=== PATIENT | female | born 1975 | race Two or more races ===

== ENCOUNTER 2016-09-30 12:31 | Emergency (ER) | payer MEDICAID ==
[~2016-09-30] VITALS: Ht 172.7 cm; Wt 81.2 kg
[2016-09-30 12:37] VITALS: BP 165/89
[2016-09-30] MEDS ORDERED: MECLIZINE HCL 12.5 MG TABLET PO ONE (13:00)
[2016-09-30] MEDS ORDERED: DEXAMETHASONE 1 MG TABLET PO ONE (13:00)
[2016-09-30] MEDS ORDERED: MECLIZINE HCL 25 MG TABLET ONE (13:12)
[2016-09-30] MEDS ORDERED: DEXAMETHASONE 4 MG TABLET ONE (13:13)
[2016-09-30] MEDS ORDERED: DEXAMETHASONE 1 MG TABLET ONE (13:13)
== END 2016-09-30 13:21 | disposition home or self-care (01) ==
LOC: ER 12:33
DX: H81.10 Benign paroxysmal vertigo, unspecified ear (principal); T50.905A Adverse effect of unspecified drugs, medicaments and biological substances, initial encounter; G89.29 Other chronic pain; M25.512 Pain in left shoulder; Y92.9 Unspecified place or not applicable
CPT/HCPCS: 99283; A4606; J8540 ×2; J8597; Z7610

== ENCOUNTER 2017-11-05 13:45 | Emergency (ER) | payer MEDICAID ==
[~2017-11-05] VITALS: Ht 165.1 cm; Wt 72.6 kg
[2017-11-05] MEDS ORDERED: MECLIZINE HCL 12.5 MG TABLET PO ONE (14:30)
[2017-11-05] MEDS ORDERED: ONDANSETRON HCL/PF 4 MG/2 ML VIAL IVP ONE (14:30)
[2017-11-05] MEDS ORDERED: DIAZEPAM 10 MG TABLET PO ONE (14:30)
[2017-11-05] MEDS ORDERED: IV NS 0.9% 1,000 ML BAG IV ONE (14:30)
[2017-11-05] MEDS ORDERED: ONDANSETRON HCL/PF 4 MG/2 ML VIAL ONE (14:41)
[2017-11-05] MEDS ORDERED: MECLIZINE HCL 25 MG TABLET ONE (14:42)
[2017-11-05] MEDS ORDERED: DIAZEPAM 5 MG TABLET ONE (14:42)
[2017-11-05 14:51] LABS: APPEARANCE,URINE Slightly Cloudy (CLEAR); BILIRUBIN,URINE Negative (NEGATIVE); BLOOD, URINE Trace-intact Ery/uL (NEGATIVE); COLOR,URINE Yellow (YELLOW); KETONES,URINE Negative (NEGATIVE); LEUKOCYTE ESTERASE ,URINE Moderate (NEGATIVE); NITRITE, URINE Negative (NEGATIVE); PROTEIN,URINE Negative (NEGATIVE); UGLUCOSE Negative (NEGATIVE); UROBILINOGEN,URINE 0.2 EU/dL (0.2)
[2017-11-05 14:53] LABS: BASOPHILS % (AUTO) 0.3 % (0.0-2.0); HEMATOCRIT 35 % (33-45); HEMOGLOBIN 12.1 g/dL (11.5-14.8); LYMPHOCYTES # (AUTO) 1.8 /CMM (0.8-4.8); LYMPHOCYTES % (AUTO) 19.4 % (20.0-44.0); MEAN CORPUSCULAR HGB CONC 35 g/dl (31.0-36.0); MEAN CORPUSCULAR VOLUME 81 fL (82-100); MONOCYTES # (AUTO) 0.9 /CMM (0.1-1.30); MONOCYTES % (AUTO) 9.6 % (2.0-12.0); NEUTROPHILS # (AUTO) 6.6 /CMM (1.8-8.9); NEUTROPHILS % (AUTO) 69.7 % (43.0-81.0); PLATELET COUNT (AUTO) 257 /CMM (150-450); RDW COEFFICIENT OF VARIATION 12.8 (11.5-15.0); RED BLOOD CELL COUNT(AUTO) 4.27 MIL/uL (4.0-5.2); WHITE BLOOD COUNT (AUTO) 9.4 K/uL (4.3-11.0)
[2017-11-05 14:58] LABS: BACTERIA,URINE Few /HPF (None Seen); WBC,URINE 80-100 /HPF (0-3)
[2017-11-05 14:59] LABS: SQUAMOUS EPITHELIAL CELL,UR Moderate /HPF (None Seen)
[2017-11-05 15:03] LABS: CALCIUM, SERUM 8.6 mg/dL (8.5-10.1); CARBON DIOXIDE 27 mmol/L (21-32); CHLORIDE 107 mmol/L (98-107); CREATININE 0.7 mg/dL (0.6-1.3); GLUCOSE 151 mg/dL (74-106); POTASSIUM 3.6 mmol/L (3.5-5.1); SODIUM SERUM 138 mmol/L (136-145); UREA NITROGEN, BLOOD 11 mg/dL (7-18)
[2017-11-05 15:09] LABS: ALANINE AMINOTRANSFERASE 19 U/L (12-78); ALBUMIN 3.5 g/dL (3.4-5.0); ALKALINE PHOSPHATASE 59 U/L (46-116); ASPARTATE AMINOTRANSFERASE 13 U/L (15-37); BILIRUBIN,DIRECT 0.1 mg/dL (0.0-0.2); BILIRUBIN,TOTAL 0.6 mg/dL (0.2-1.0); TOTAL PROTEIN, SERUM 8.2 g/dL (6.4-8.2)
[2017-11-05 15:11] LABS: TROPONIN I < 0.017 ng/mL (0.00-0.056)
--- NOTE | 2017-11-05 15:11 | NUR ---
C/O DIZZINESS ABD PAIN AND VAGINAL DISCAHRGE X3 DAYS, NAD NOTED, VSS, RESP EVEN AND UNLABORED, PT WAS PUT ON MONITOR AND HOSPITAL GOWN, WAITING FOR MD GIPSON.
[2017-11-05] MEDS ORDERED: METRONIDAZOLE 500 MG TABLET ONE (15:54)
[2017-11-05] MEDS ORDERED: CEFTRIAXONE 1 G VIAL ONE (15:54)
[2017-11-05] MEDS ORDERED: AZITHROMYCIN 250 MG TABLET ONE (15:54)
[2017-11-05] MEDS ORDERED: LIDOCAINE /MPF 1% VIAL 5 ML VIAL ONE (15:54)
[2017-11-05] MEDS ORDERED: AZITHROMYCIN 250 MG TABLET PO ONE (16:00)
[2017-11-05] MEDS ORDERED: METRONIDAZOLE 500 MG TABLET PO ONE (16:00)
[2017-11-05] MEDS ORDERED: CEFTRIAXONE 1 G VIAL IM ONE (16:00)
--- NOTE | 2017-11-05 16:42 | NUR ---
Patient discharged to home in stable condition. Written and verbal after care instructions given. Patient verbalizes understanding of instruction.
--- NOTE | 2017-11-05 16:42 | NUR ---
IV removed. Catheter intact and site benign. Pressure and 4x4 applied to site. No bleeding noted.
[2017-11-05 16:43] VITALS: BP 147/89
== END 2017-11-05 16:44 | disposition home or self-care (01) ==
LOC: ER 13:46
DX: R42 Dizziness and giddiness (principal); N39.0 Urinary tract infection, site not specified; N89.8 Other specified noninflammatory disorders of vagina; G89.29 Other chronic pain
CPT/HCPCS: 36415; 70450-TC; 71045-TC; 76856-TC; 80048-TC; 80076-TC; 81000-TC; 84484-TC; 84703-TC; 85025-TC; 85730-TC; 87070-TC; 87081-TC; 87086-TC; 87110-TC; 87210-TC; 87491; 87591; A4606; A6402; J0696; J2405; J3490; J7030; J8597; Z7610

== ENCOUNTER 2018-01-25 10:17 | Emergency (ER) | payer MEDICAID ==
[~2018-01-25] VITALS: Ht 162.6 cm; Wt 71.7 kg
--- NOTE | 2018-01-25 10:30 | NUR ---
BUE PAIN WORST TO R HAND, L KNEE PAIN X 5 DAYS, NAD NOTED, VSS, RESP EVEN AND UNLABORED, PT WAS PUT ON MONITOR. WAITING FOR MD GIPSON.
[2018-01-25] MEDS ORDERED: KETOROLAC TROMETHAMINE INJ 30 MG/ML VIAL ONE (11:23)
[2018-01-25] MEDS ORDERED: KETOROLAC TROMETHAMINE INJ 60 MG/2 ML VIAL IM ONE (11:30)
[2018-01-25 11:31] LABS: BASOPHILS # (AUTO) 0.1 /CMM (0.0-0.2); BASOPHILS % (AUTO) 0.7 % (0.0-2.0); EOSINOPHILS % (AUTO) 2.9 % (0.0-6.0); HEMATOCRIT 35 % (33-45); HEMOGLOBIN 11.6 g/dL (11.5-14.8); LYMPHOCYTES % (AUTO) 24.1 % (20.0-44.0); MEAN CORPUSCULAR HEMOGLOBIN 27 PG (26.0-33.0); MEAN CORPUSCULAR HGB CONC 34 g/dl (31.0-36.0); MEAN CORPUSCULAR VOLUME 82 fL (82-100); MONOCYTES # (AUTO) 0.9 /CMM (0.1-1.30); MONOCYTES % (AUTO) 10.5 % (2.0-12.0); NEUTROPHILS # (AUTO) 5.2 /CMM (1.8-8.9); NEUTROPHILS % (AUTO) 61.8 % (43.0-81.0); PLATELET COUNT (AUTO) 259 /CMM (150-450); RDW COEFFICIENT OF VARIATION 12.7 (11.5-15.0); RED BLOOD CELL COUNT(AUTO) 4.27 MIL/uL (4.0-5.2); WHITE BLOOD COUNT (AUTO) 8.4 K/uL (4.3-11.0)
[2018-01-25 11:41] LABS: CALCIUM, SERUM 8.4 mg/dL (8.5-10.1); CREATININE 0.7 mg/dL (0.6-1.3); POTASSIUM 3.6 mmol/L (3.5-5.1)
[2018-01-25 11:46] LABS: ALBUMIN 3.4 g/dL (3.4-5.0); BILIRUBIN,TOTAL 0.5 mg/dL (0.2-1.0); TOTAL PROTEIN, SERUM 7.9 g/dL (6.4-8.2)
[2018-01-25 11:58] LABS: C-REACTIVE PROTEIN 2.7 mg/dL (0.0-0.9)
[2018-01-25 12:11] LABS: APPEARANCE,URINE Clear (CLEAR); BILIRUBIN,URINE Negative (NEGATIVE); BLOOD, URINE Negative Ery/uL (NEGATIVE); COLOR,URINE Yellow (YELLOW); KETONES,URINE Trace (NEGATIVE); LEUKOCYTE ESTERASE ,URINE Small (NEGATIVE); NITRITE, URINE Negative (NEGATIVE); PROTEIN,URINE Negative (NEGATIVE); UGLUCOSE Negative (NEGATIVE); UROBILINOGEN,URINE 0.2 EU/dL (0.2)
[2018-01-25 12:16] LABS: RBC,URINE 0-3 /HPF (0-2)
[2018-01-25 12:17] LABS: BACTERIA,URINE Few /HPF (None Seen); SQUAMOUS EPITHELIAL CELL,UR Moderate /HPF (None Seen)
[2018-01-25 12:44] VITALS: BP 128/65
--- NOTE | 2018-01-25 12:46 | NUR ---
Patient discharged to home in stable condition. Written and verbal after care instructions given. Patient verbalizes understanding of instruction.
== END 2018-01-25 12:49 | disposition home or self-care (01) ==
LOC: ER 10:20
DX: M25.562 Pain in left knee (principal); M79.641 Pain in right hand; G89.29 Other chronic pain
CPT/HCPCS: 36415; 73130-TC; 73564-TC; 80053-TC; 81000-TC; 84703-TC; 85025-TC; 85652-TC; 86140-TC; 86431-TC; A4606; J1885; Z7610

== ENCOUNTER 2018-06-16 12:43 | Emergency (ER) | payer MEDICAID ==
[~2018-06-16] VITALS: Ht 162.6 cm; Wt 65.8 kg
--- NOTE | 2018-06-16 12:45 | NUR ---
BIB SELF W C/O BREAST AND VAGINAL DISCHARGE X 6 MONTHS. TO ER BED 16, CHANGED TO [facility], AWAITING MD GIPSON
--- NOTE | 2018-06-16 13:30 | NUR ---
KARLO DOUGHERTYT AT BEDSIDE
--- NOTE | 2018-06-16 13:43 | NUR ---
CERVICAL WET MOUNT SPECIMEN SUBMITTED TO LAB
[2018-06-16 13:47] LABS: APPEARANCE,URINE Clear (CLEAR); BILIRUBIN,URINE Negative (NEGATIVE); BLOOD, URINE Trace-intact Ery/uL (NEGATIVE); COLOR,URINE Yellow (YELLOW); KETONES,URINE Negative (NEGATIVE); LEUKOCYTE ESTERASE ,URINE Trace (NEGATIVE); NITRITE, URINE Negative (NEGATIVE); PROTEIN,URINE Negative (NEGATIVE); UGLUCOSE Negative (NEGATIVE); UROBILINOGEN,URINE 0.2 EU/dL (0.2)
[2018-06-16 13:58] LABS: BACTERIA,URINE Few /HPF (None Seen); SQUAMOUS EPITHELIAL CELL,UR Few /HPF (None Seen)
[2018-06-16] MEDS ORDERED: FLUCONAZOLE (100 MG) 100 MG TABLET PO ONE (15:00)
[2018-06-16] MEDS ORDERED: FLUCONAZOLE (100 MG) 100 MG TABLET ONE (15:07)
--- NOTE | 2018-06-16 15:34 | NUR ---
Patient discharged to home in stable condition. Written and verbal after care instructions given. Patient verbalizes understanding of instruction.
[2018-06-16 15:40] VITALS: BP 138/98
== END 2018-06-16 15:41 | disposition home or self-care (01) ==
LOC: ER 12:46
DX: N89.8 Other specified noninflammatory disorders of vagina (principal); N64.3 Galactorrhea not associated with childbirth; I10 Essential (primary) hypertension; M25.512 Pain in left shoulder; G89.29 Other chronic pain; Z85.3 Personal history of malignant neoplasm of breast
CPT/HCPCS: 81000-TC; 84703-TC; 87210-TC

== ENCOUNTER 2019-01-25 09:56 | Emergency (ER) | payer MEDICAID ==
[~2019-01-25] VITALS: Ht 165.1 cm; Wt 72.6 kg
--- NOTE | 2019-01-25 10:00 | NUR ---
Able to move wrist +ROM No obvious deformity Denies trauma/injury
[2019-01-25 10:10] VITALS: BP 152/90
== END 2019-01-25 11:50 | disposition home or self-care (01) ==
LOC: ER 09:59
DX: M25.532 Pain in left wrist (principal); I10 Essential (primary) hypertension; G89.29 Other chronic pain; M19.90 Unspecified osteoarthritis, unspecified site
CPT/HCPCS: 73110

== ENCOUNTER 2019-02-25 19:34 | Emergency (ER) | payer MEDICAID ==
[~2019-02-25] VITALS: Ht 165.1 cm; Wt 68.0 kg
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
--- NOTE | 2019-02-25 20:50 | NUR ---
PA AT THE BED SIDE
[2019-02-25] MEDS ORDERED: KETOROLAC TROMETHAMINE INJ 60 MG/2 ML VIAL IM ONE (21:00)
[2019-02-25] MEDS ORDERED: KETOROLAC TROMETHAMINE INJ 30 MG/ML VIAL ONE (21:11)
--- NOTE | 2019-02-25 22:50 | NUR ---
PT WAS PROVIDED WITH L SHOULDER IMMOBILIZER. Patient discharged to home in stable condition. Rx and Written and verbal after care instructions given. Patient verbalizes understanding of instruction.
[2019-02-25 23:55] VITALS: BP 147/87
== END 2019-02-25 23:00 | disposition home or self-care (01) ==
LOC: ER 19:37
DX: M25.512 Pain in left shoulder (principal); G89.29 Other chronic pain; M54.9 Dorsalgia, unspecified; I10 Essential (primary) hypertension; M19.90 Unspecified osteoarthritis, unspecified site; Y08.89XA Assault by other specified means, initial encounter; Y93.89 Activity, other specified; Y92.89 Other specified places as the place of occurrence of the external cause; Y99.8 Other external cause status
CPT/HCPCS: 73030; 96372; 99283; J1885

== ENCOUNTER 2019-03-18 09:15 | Emergency (ER) | payer MEDICAID ==
[~2019-03-18] VITALS: Ht 165.1 cm; Wt 72.6 kg
--- NOTE | 2019-03-18 09:40 | NUR ---
SORETHROAT, DIFFICULTY SWALLOWING X YESTERDAY, FEVER LAST NIGHT TOOK TYLENOL AT 6AM. ON ROOM AIR, BREATHING EVENLY AND UNLABORED. CONNECTED TO THE MONITOR AND PULSE OX. KEPT COMFORTABLE, WILL CONITNUE TO MONITOR ACCORDINGLY.
[2019-03-18] MEDS ORDERED: ACETAMINOPHEN ES 500 MG TABLET ONE (09:48)
[2019-03-18] MEDS ORDERED: DEXAMETHASONE SOD PHOSPHATE 10 MG/ML VIAL ONE (09:48)
[2019-03-18 09:56] VITALS: BP 155/96
--- NOTE | 2019-03-18 09:57 | NUR ---
Patient discharged to home in stable condition. Written and verbal after care instructions given. Patient verbalizes understanding of instruction.
[2019-03-18] MEDS ORDERED: ACETAMINOPHEN ES 500 MG TABLET PO ONE (10:00)
[2019-03-18] MEDS ORDERED: DEXAMETHASONE SOD PHOSPHATE 10 MG/ML VIAL IM ONE (10:00)
== END 2019-03-18 09:56 | disposition home or self-care (01) ==
LOC: ER 09:18
DX: J02.0 Streptococcal pharyngitis (principal); R59.0 Localized enlarged lymph nodes; I10 Essential (primary) hypertension; M25.512 Pain in left shoulder; G89.29 Other chronic pain
CPT/HCPCS: 96372; 99283; J1100

== ENCOUNTER 2020-01-27 18:42 | Emergency (ER) | payer MEDICAID ==
[~2020-01-27] VITALS: Ht 154.9 cm; Wt 72.6 kg
[2020-01-27 19:10] LABS: BILIRUBIN,URINE Negative (NEGATIVE); BLOOD, URINE Large Ery/uL (NEGATIVE); COLOR,URINE Yellow (YELLOW); KETONES,URINE Negative (NEGATIVE); LEUKOCYTE ESTERASE ,URINE Negative (NEGATIVE); NITRITE, URINE Negative (NEGATIVE); PH,URINE 5.5 (5.0-8.0); PROTEIN,URINE Negative (NEGATIVE); UGLUCOSE Negative (NEGATIVE); UROBILINOGEN,URINE 0.2 EU/dL (0.2)
[2020-01-27 19:19] LABS: APPEARANCE,URINE HAZY (CLEAR)
[2020-01-27 19:20] LABS: BACTERIA,URINE Few /HPF (None Seen); RBC,URINE 21-50 /HPF (0-2); SQUAMOUS EPITHELIAL CELL,UR Few /HPF (None Seen); WBC,URINE 0-2 /HPF (0-3)
[2020-01-27] MEDS ORDERED: IV NS 0.9% 1,000 ML BAG IV ONE (19:30)
[2020-01-27 19:40] LABS: BASOPHILS % (AUTO) 0.6 % (0.0-2.0); HEMATOCRIT 32 % (33-45); HEMOGLOBIN 10.6 g/dL (11.5-14.8); LYMPHOCYTES # (AUTO) 2.4 /CMM (0.8-4.8); LYMPHOCYTES % (AUTO) 32.4 % (20.0-44.0); MEAN CORPUSCULAR HGB CONC 34 g/dl (31.0-36.0); MEAN CORPUSCULAR VOLUME 83 fL (82-100); MONOCYTES # (AUTO) 0.7 /CMM (0.1-1.30); MONOCYTES % (AUTO) 8.9 % (2.0-12.0); NEUTROPHILS # (AUTO) 4.1 /CMM (1.8-8.9); NEUTROPHILS % (AUTO) 55.1 % (43.0-81.0); PLATELET COUNT (AUTO) 242 /CMM (150-450); RED BLOOD CELL COUNT(AUTO) 3.81 MIL/uL (4.0-5.2); WHITE BLOOD COUNT (AUTO) 7.4 K/uL (4.3-11.0)
--- NOTE | 2020-01-27 19:43 | NUR ---
VAGINAL BLEEDING X 10 DAYS. PT AAOX4, VSS. RR EVEN & UNLBORED. DENIES CP, SOB, N/V AT THIS TIME. PT SEEN & EVAL'D BY KARLO ARITA. WILL CONT TO MONITOR.
[2020-01-27 21:00] LABS: BASOPHILS % (AUTO) 0.5 % (0.0-2.0); EOSINOPHILS % (AUTO) 2.6 % (0.0-6.0); HEMATOCRIT 29 % (33-45); HEMOGLOBIN 9.6 g/dL (11.5-14.8); LYMPHOCYTES % (AUTO) 29.9 % (20.0-44.0); MEAN CORPUSCULAR HGB CONC 34 g/dl (31.0-36.0); MEAN CORPUSCULAR VOLUME 83 fL (82-100); MONOCYTES # (AUTO) 0.5 /CMM (0.1-1.30); MONOCYTES % (AUTO) 7.6 % (2.0-12.0); NEUTROPHILS % (AUTO) 59.4 % (43.0-81.0); PLATELET COUNT (AUTO) 220 /CMM (150-450); RED BLOOD CELL COUNT(AUTO) 3.43 MIL/uL (4.0-5.2); WHITE BLOOD COUNT (AUTO) 6.7 K/uL (4.3-11.0)
[2020-01-27 21:23] VITALS: BP 146/86
--- NOTE | 2020-01-27 21:23 | NUR ---
Patient discharged to home in stable condition. Written and verbal after care instructions given. Patient verbalizes understanding of instruction. IV removed. Catheter intact and site benign. Pressure and 4x4 applied to site. No bleeding noted.
== END 2020-01-27 21:24 | disposition home or self-care (01) ==
LOC: ER 18:42
DX: N92.0 Excessive and frequent menstruation with regular cycle (principal); R42 Dizziness and giddiness; I10 Essential (primary) hypertension; M19.90 Unspecified osteoarthritis, unspecified site
CPT/HCPCS: 36415; 76856; 81001; 84702; 84703; 85025 ×2; 85730; 86850; 96360; 99284; A6403; J7030; 81000-TC

== ENCOUNTER 2020-01-31 20:19 | Emergency (ER) | payer MEDICAID ==
[~2020-01-31] VITALS: Ht 160 cm; Wt 72.6 kg
--- NOTE | 2020-01-31 20:30 | NUR ---
PT CAME TO THE ED C/O LOWER ABD PAIN + NAUSEA AND VAGINAL BLEEDING X 2 WEEKS. PT AAOX4, VSS, RESPIRATIONS EVEN AND UNLABORED ON RA W/ NAD NOTED. PT CONNECTED TO THE MONITOR AND POX.
--- NOTE | 2020-01-31 20:35 | NUR ---
KARLO PATE AT BEDSIDE
[2020-01-31] MEDS ORDERED: ONDANSETRON HCL/PF 4 MG/2 ML VIAL ONE (20:49)
[2020-01-31] MEDS ORDERED: MORPHINE SULFATE INJ 4 MG/ML DISP.SYRIN ONE (20:49)
[2020-01-31 20:54] LABS: BASOPHILS % (AUTO) 0.5 % (0.0-2.0); HEMATOCRIT 27 % (33-45); HEMOGLOBIN 9.1 g/dL (11.5-14.8); LYMPHOCYTES # (AUTO) 1.9 /CMM (0.8-4.8); LYMPHOCYTES % (AUTO) 21.6 % (20.0-44.0); MEAN CORPUSCULAR HGB CONC 34 g/dl (31.0-36.0); MEAN CORPUSCULAR VOLUME 84 fL (82-100); MONOCYTES # (AUTO) 0.6 /CMM (0.1-1.30); MONOCYTES % (AUTO) 6.9 % (2.0-12.0); NEUTROPHILS # (AUTO) 6.1 /CMM (1.8-8.9); PLATELET COUNT (AUTO) 250 /CMM (150-450); RED BLOOD CELL COUNT(AUTO) 3.21 MIL/uL (4.0-5.2); WHITE BLOOD COUNT (AUTO) 8.8 K/uL (4.3-11.0)
[2020-01-31] MEDS ORDERED: ONDANSETRON HCL/PF 4 MG/2 ML VIAL IVP ONE (21:00)
[2020-01-31] MEDS ORDERED: IV NS 0.9% 1,000 ML BAG IV ONE (21:00)
[2020-01-31] MEDS ORDERED: MORPHINE SULFATE INJ 4 MG/ML DISP.SYRIN IV ONE (21:00)
[2020-01-31 21:04] LABS: CALCIUM, SERUM 8.4 mg/dL (8.5-10.1); CREATININE 0.9 mg/dL (0.6-1.3); POTASSIUM 3.9 mmol/L (3.5-5.1)
--- NOTE | 2020-01-31 22:41 | NUR ---
Patient discharged to home in stable condition. Written and verbal after care instructions given. Patient verbalizes understanding of instruction.IV removed. Catheter intact and site benign. Pressure and 4x4 applied to site. No bleeding noted.
[2020-01-31 22:42] VITALS: BP 138/78
== END 2020-01-31 22:42 | disposition home or self-care (01) ==
LOC: ER 20:23
DX: N93.8 Other specified abnormal uterine and vaginal bleeding (principal); I10 Essential (primary) hypertension; M19.90 Unspecified osteoarthritis, unspecified site
CPT/HCPCS: 36415; 80048; 85025; 85730; 96361; 96374; 96375; 99284; J2270; J2405; J7030

== ENCOUNTER 2020-02-03 10:24 | Emergency (ER) | payer MEDICAID ==
[~2020-02-03] VITALS: Ht 160 cm; Wt 77.1 kg
[2020-02-03 10:29] VITALS: BP 152/98
--- NOTE | 2020-02-03 10:40 | NUR ---
RIGHT HAND PAIN AND SWELLING X 3 DAYS,NO TRAUMA, IBUPROFEN 600 MG. TAKEN 30 MINUTES MONITORING SPECIALIST. PATIENT A/OX4, BREATHING EVEN AND UNLABORED, NO SOB NOTED. NEEDS ATTENDED. KEPT COMFORTABLE.
--- NOTE | 2020-02-03 11:48 | NUR ---
Patient discharged to home in stable condition. Written and verbal after care instructions given. Patient verbalizes understanding of instruction.
== END 2020-02-03 11:49 | disposition home or self-care (01) ==
LOC: ER 10:24
DX: I80.9 Phlebitis and thrombophlebitis of unspecified site (principal); I10 Essential (primary) hypertension; M19.90 Unspecified osteoarthritis, unspecified site; G89.29 Other chronic pain
CPT/HCPCS: 73130-TC

== ENCOUNTER 2020-09-22 17:23 | Emergency (ER) | payer MEDICAID ==
[~2020-09-22] VITALS: Ht 162.6 cm; Wt 83.9 kg
--- NOTE | 2020-09-22 17:30 | NUR ---
Patient came in to the er c/o pression of abdominal distension since she got covid 19. On room air, breathing evenly and unlabored. Connected to the monitor and pulse ox. kept comfortable, will continue to monitor accordingly.
[2020-09-22] MEDS ORDERED: hydrALAZINE HCL IV 20 MG VIAL IV ONE (18:00)
[2020-09-22 18:09] LABS: BASOPHILS # (AUTO) 0.1 /CMM (0.0-0.2); BASOPHILS % (AUTO) 0.7 % (0.0-2.0); EOSINOPHILS % (AUTO) 0.6 % (0.0-6.0); HEMATOCRIT 37 % (33-45); HEMOGLOBIN 12.5 g/dL (11.5-14.8); LYMPHOCYTES # (AUTO) 1.6 /CMM (0.8-4.8); LYMPHOCYTES % (AUTO) 11.6 % (20.0-44.0); MEAN CORPUSCULAR HGB CONC 33 g/dl (31.0-36.0); MEAN CORPUSCULAR VOLUME 84 fL (82-100); MONOCYTES # (AUTO) 0.7 /CMM (0.1-1.30); MONOCYTES % (AUTO) 5.2 % (2.0-12.0); NEUTROPHILS # (AUTO) 10.9 /CMM (1.8-8.9); NEUTROPHILS % (AUTO) 81.9 % (43.0-81.0); PLATELET COUNT (AUTO) 332 /CMM (150-450); RED BLOOD CELL COUNT(AUTO) 4.48 MIL/uL (4.0-5.2); WHITE BLOOD COUNT (AUTO) 13.3 K/uL (4.3-11.0)
[2020-09-22 18:21] LABS: CALCIUM, SERUM 8.9 mg/dL (8.5-10.1); CARBON DIOXIDE 23 mmol/L (21-32); CHLORIDE 101 mmol/L (98-107); CREATININE 0.8 mg/dL (0.6-1.3); GLUCOSE 315 mg/dL (74-106); POTASSIUM 4.2 mmol/L (3.5-5.1); SODIUM SERUM 135 mmol/L (136-145); UREA NITROGEN, BLOOD 16 mg/dL (7-18)
[2020-09-22 18:23] LABS: BILIRUBIN,URINE Negative (NEGATIVE); COLOR,URINE YELLOW (YELLOW); LEUKOCYTE ESTERASE ,URINE Negative (NEGATIVE); NITRITE, URINE Negative (NEGATIVE); PH,URINE 6.5 (5.0-8.0); PROTEIN,URINE Negative (NEGATIVE); UGLUCOSE 500 MG/DL mg/dL (NEGATIVE); UROBILINOGEN,URINE 0.2 EU/dL (0.2)
[2020-09-22 18:27] LABS: ALANINE AMINOTRANSFERASE 40 U/L (12-78); ALBUMIN 3.1 g/dL (3.4-5.0); ALKALINE PHOSPHATASE 80 U/L (46-116); ASPARTATE AMINOTRANSFERASE 19 U/L (15-37); BILIRUBIN,TOTAL 0.2 mg/dL (0.2-1.0); LIPASE 93 U/L (73-393); TOTAL PROTEIN, SERUM 7.7 g/dL (6.4-8.2)
[2020-09-22 18:39] LABS: BACTERIA,URINE Rare /HPF (None Seen); RBC,URINE NONE SEEN /HPF (0-2); SQUAMOUS EPITHELIAL CELL,UR Few /HPF (None Seen); WBC,URINE NONE SEEN /HPF (0-3)
[2020-09-22] MEDS ORDERED: hydrALAZINE HCL IV 20 MG VIAL ONE (18:49)
[2020-09-22] MEDS ORDERED: METF-440 PO (19:48)
[2020-09-22 20:15] VITALS: BP 165/91
--- NOTE | 2020-09-22 20:15 | NUR ---
IV removed. Catheter intact and site benign. Pressure and 4x4 applied to site. No bleeding noted. Patient discharged to home in stable condition. Written and verbal after care instructions given. Patient verbalizes understanding of instruction and RX. Pt ambulated out of ED. Left with daughter. vss.
[2020-09-23] MEDS ORDERED: ONDA4TAB5 PO (23:23)
[2020-09-23] MEDS ORDERED: DICY20TA11 PO (23:23)
== END 2020-09-22 20:18 | disposition home or self-care (01) ==
LOC: ER 17:28
DX: R10.84 Generalized abdominal pain (principal); E11.9 Type 2 diabetes mellitus without complications; I10 Essential (primary) hypertension; M19.90 Unspecified osteoarthritis, unspecified site; G89.29 Other chronic pain; Z79.84 Long term (current) use of oral hypoglycemic drugs
CPT/HCPCS: 36415; 71045; 80048; 80076; 81001; 83690; 83880; 84443; 84484; 84703; 85025; 93005; 96374; 99285; J0360

== ENCOUNTER 2020-09-23 21:39 | Emergency (ER) | payer MEDICAID ==
[~2020-09-23] VITALS: Ht 162.6 cm; Wt 83.5 kg
[~2020-09-23 21:39] MED LIST: METF-440 PO
--- NOTE | 2020-09-23 21:55 | NUR ---
called pt in wr. per pt family she is in the restroom at this time.
--- NOTE | 2020-09-23 22:03 | NUR ---
bibself c/o headache, fever and diarrhea and abd pain since 5pm. , pt aaox4, denies any sob. vss, nad noted, vss pending er provider frantzal
[2020-09-23] MEDS ORDERED: ONDANSETRON HCL/PF 4 MG/2 ML VIAL ONE (22:27)
[2020-09-23] MEDS ORDERED: KETOROLAC TROMETHAMINE 15 MG/ML VIAL ONE (22:27)
[2020-09-23] MEDS: IV NS 0.9% 1,000 ML BAG IV ONE (22:33)
[2020-09-23] MEDS: ONDANSETRON HCL/PF 4 MG/2 ML VIAL IVP ONE (22:33)
[2020-09-23] MEDS: KETOROLAC TROMETHAMINE INJ 30 MG/ML VIAL IV ONE (22:33)
[2020-09-23 22:36] LABS: BASOPHILS # (AUTO) 0.2 /CMM (0.0-0.2); BASOPHILS % (AUTO) 1.1 % (0.0-2.0); EOSINOPHILS % (AUTO) 2.4 % (0.0-6.0); HEMATOCRIT 40 % (33-45); HEMOGLOBIN 13.4 g/dL (11.5-14.8); LYMPHOCYTES % (AUTO) 22.4 % (20.0-44.0); MEAN CORPUSCULAR HGB CONC 34 g/dl (31.0-36.0); MEAN CORPUSCULAR VOLUME 84 fL (82-100); MONOCYTES # (AUTO) 1.2 /CMM (0.1-1.30); MONOCYTES % (AUTO) 8.5 % (2.0-12.0); NEUTROPHILS # (AUTO) 8.9 /CMM (1.8-8.9); NEUTROPHILS % (AUTO) 65.6 % (43.0-81.0); PLATELET COUNT (AUTO) 359 /CMM (150-450); RED BLOOD CELL COUNT(AUTO) 4.75 MIL/uL (4.0-5.2); WHITE BLOOD COUNT (AUTO) 13.6 K/uL (4.3-11.0)
[2020-09-23 22:51] LABS: CALCIUM, SERUM 8.6 mg/dL (8.5-10.1); POTASSIUM 3.8 mmol/L (3.5-5.1)
[2020-09-23 22:57] LABS: ALBUMIN 3.2 g/dL (3.4-5.0); BILIRUBIN,DIRECT 0.1 mg/dL (0.0-0.2); BILIRUBIN,TOTAL 0.2 mg/dL (0.2-1.0); TOTAL PROTEIN, SERUM 7.9 g/dL (6.4-8.2)
[2020-09-23] MEDS ORDERED: DIPHENOXYLATE HCL/ATROP SULF 1 UDTAB TABLET ONE (23:02)
[2020-09-23] MEDS ORDERED: HYDROMORPHONE 1 MG/1 ML DISP.SYRIN ONE (23:04)
[2020-09-23] MEDS ORDERED: DICYCLOMINE HCL 10 MG CAPSULE PO ONE (23:05)
[2020-09-23] MEDS: DIPHENOXYLATE HCL/ATROP SULF 1 UDTAB TABLET PO ONE (23:09)
[2020-09-23] MEDS: DICYCLOMINE HCL 10 MG/5 ML UDC PO ONE (23:09)
[2020-09-23] MEDS: HYDROMORPHONE 1 MG/1 ML DISP.SYRIN IV ONE (23:09)
[2020-09-23] MEDS ORDERED: ONDA4TAB5 PO (23:23)
[2020-09-23] MEDS ORDERED: DICY20TA11 PO (23:23)
[2020-09-23 23:43] VITALS: BP 139/80
[2020-09-26] MEDS ORDERED: AMLO-212 PO (13:15)
== END 2020-09-23 23:43 | disposition home or self-care (01) ==
LOC: ER 21:42
DX: R11.2 Nausea with vomiting, unspecified (principal); R19.7 Diarrhea, unspecified; R10.9 Unspecified abdominal pain; G89.29 Other chronic pain; I10 Essential (primary) hypertension; Z79.84 Long term (current) use of oral hypoglycemic drugs; Z79.899 Other long term (current) drug therapy
CPT/HCPCS: 36415; 74022; 76705; 80048; 80076; 83690; 84702; 84703; 85025; 85730; 96361; 96374; 96375; 99285; J1170; J1885; J2405

== ENCOUNTER 2020-09-24 19:03 | Inpatient (IN) | payer MEDICAID ==
[~2020-09-24] VITALS: Ht 162.6 cm; Wt 82.6 kg
[~2020-09-24 19:03] MED LIST changes: +DICY20TA11 PO; +ONDA4TAB5 PO
--- NOTE | 2020-09-24 19:35 | NUR ---
PT BIBSELF C/O HEADACHEX3 DAYS. PT AAOX4 BREATHING EVENLY AN UNLABORED. PT HAS BEEN TO THE ED THREE TIMES AND STATES THAT "NOTHING HELPS MY PAIN". PT SKIN WARM, DRY, AND INTACT. PT ATTACHED TO MONITOR AND POX. PT GIVEN BLANKET AND CALL LIGHT WITHIN REACH
--- NOTE | 2020-09-24 20:25 | NUR ---
BLOOD OBTAINED AND SENT TO LAB
[2020-09-24] MEDS ORDERED: METOCLOPRAMIDE HCL 10 MG/2 ML VIAL IV ONE (20:30)
[2020-09-24] MEDS ORDERED: diphenhydrAMINE HCL 50 MG/ML VIAL IV ONE (20:30)
[2020-09-24] MEDS ORDERED: IV NS 0.9% 1,000 ML BAG IV ONE (20:30)
[2020-09-24] MEDS ORDERED: METOCLOPRAMIDE HCL 10 MG/2 ML VIAL ONE (20:35)
[2020-09-24] MEDS ORDERED: diphenhydrAMINE HCL 50 MG/ML VIAL ONE (20:35)
[2020-09-24 20:37] LABS: BASOPHILS # (AUTO) 0.1 /CMM (0.0-0.2); BASOPHILS % (AUTO) 1.2 % (0.0-2.0); HEMATOCRIT 40 % (33-45); HEMOGLOBIN 13.3 g/dL (11.5-14.8); LYMPHOCYTES # (AUTO) 2.3 /CMM (0.8-4.8); LYMPHOCYTES % (AUTO) 18.6 % (20.0-44.0); MEAN CORPUSCULAR HGB CONC 34 g/dl (31.0-36.0); MEAN CORPUSCULAR VOLUME 83 fL (82-100); MONOCYTES # (AUTO) 0.9 /CMM (0.1-1.30); MONOCYTES % (AUTO) 7.6 % (2.0-12.0); NEUTROPHILS # (AUTO) 8.8 /CMM (1.8-8.9); NEUTROPHILS % (AUTO) 70.6 % (43.0-81.0); PLATELET COUNT (AUTO) 354 /CMM (150-450); RED BLOOD CELL COUNT(AUTO) 4.75 MIL/uL (4.0-5.2); WHITE BLOOD COUNT (AUTO) 12.5 K/uL (4.3-11.0)
[2020-09-24 20:48] LABS: CREATININE 0.9 mg/dL (0.6-1.3); POTASSIUM 3.7 mmol/L (3.5-5.1)
--- NOTE | 2020-09-24 21:04 | NUR ---
PT UNABLE TO URINATE. MD AWARE
--- NOTE | 2020-09-24 21:10 | NUR ---
XRAY AT BEDSIDE
[2020-09-24] MEDS ORDERED: IOHEXOL-350 100 ML VIAL IV ONE (21:12)
[2020-09-24] MEDS ORDERED: CT SWABBABLE VALVE TRANS SET 1 EA INFUS.SET MC ONE (21:12)
[2020-09-24] MEDS ORDERED: IV NS 0.9% 250 ML BAG IV ONE (21:12)
--- NOTE | 2020-09-24 21:30 | NUR ---
RETURN FROM RADIOLOGY
--- NOTE | 2020-09-24 21:47 | NUR ---
COVID SWAB SENT TO LAB
--- NOTE | 2020-09-24 22:19 | NUR ---
VERBAL ORDER 5MG OF HYDRALAZINE. NOTED AND CARRIED OUT
[2020-09-24] MEDS ORDERED: KETOROLAC TROMETHAMINE 15 MG/ML VIAL ONE (22:21)
[2020-09-24] MEDS ORDERED: hydrALAZINE HCL IV 20 MG VIAL ONE (22:22)
[2020-09-24 22:28] LABS: BILIRUBIN,URINE Negative (NEGATIVE); COLOR,URINE YELLOW (YELLOW); LEUKOCYTE ESTERASE ,URINE Negative (NEGATIVE); NITRITE, URINE Negative (NEGATIVE); PROTEIN,URINE Negative (NEGATIVE); UGLUCOSE Negative (NEGATIVE); UROBILINOGEN,URINE 0.2 EU/dL (0.2)
[2020-09-24] MEDS ORDERED: KETOROLAC TROMETHAMINE INJ 30 MG/ML VIAL IV ONE (22:30)
[2020-09-24 22:34] LABS: BACTERIA,URINE Rare /HPF (None Seen); SQUAMOUS EPITHELIAL CELL,UR 0-2 /HPF (None Seen)
[2020-09-24] MEDS ORDERED: hydrALAZINE HCL IV 20 MG VIAL IV ONE (23:00)
--- NOTE | 2020-09-24 23:14 | NUR ---
TELE 104
--- NOTE | 2020-09-24 23:24 | NUR ---
GAVE REPORT TO LUBA CLAROS FOR GWENDOLYN
[2020-09-24] MEDS ORDERED: ACETAMINOPHEN 325 MG TABLET PO PRN (23:30)
[2020-09-24] MEDS ORDERED: HYDROMORPHONE INJ 2 MG/ML DISP.SYRIN IV PRN (23:30)
[2020-09-24] MEDS ORDERED: CLONIDINE HCL 0.1 MG TABLET PO PRN (23:30)
[2020-09-24] MEDS ORDERED: MAG HYDROX/AL HYDROX/SIMETH 30 ML UDC PO PRN (23:30)
[2020-09-24] MEDS ORDERED: MAGNESIUM HYDROXIDE 30 ML UDC PO PRN (23:30)
[2020-09-24] MEDS ORDERED: HYDROCODONE/APAP 5/325MG TABLET PO PRN (23:30)
[2020-09-24] MEDS ORDERED: ONDANSETRON HCL/PF 4 MG/2 ML VIAL IVP PRN (23:30)
[2020-09-25] VITALS (7 sets, daily range): BP systolic 136–168; BP diastolic 84–100
[2020-09-25] MEDS: IV NS 0.9% 1,000 ML IV PRN (00:01)
--- NOTE | 2020-09-25 00:04 | NUR ---
TELE/RN OPENING NOTES RECEIVED REPORT FROM ED RN DAGMAR AT 2320 HRS, PATIENT COMING TO ROOM 104. PATIENT ARRIVED ON UNIT AT 2335 HRS. PATIENT SUSTAINED NO INJURIES DURING TRANSPORT. PATIENT TRANSFERRED TO BED SAFELY WITH STAND BY ASSIST. PATIENT RIGHT AC IV ACCESS INTACT FLUSHING WELL. PATIENT BREATHING IS EVEN AND UNLABORED. PATIENT SHOWS NO SIGNS OF SOB OR RESPIRATORY DISTRESS. PATIENT STATES HEADACHE STILL, NO VOMITING. PATIENT HAS BELONGINGS AT BEDSIDE, SIGNED LIST. SAFETY MEASURES ARE IN PLACE, BED IS LOCKED AND PLACED IN THE LOWEST POSITION, SIDE RAILS UP X 2, CALL LIGHT IS WITHIN REACH. WILL CONTINUE WITH PATIENT PLAN OF CARE.
--- NOTE | 2020-09-25 01:30 | NUR ---
TELE/RN NOTES PATIENT COMPLAINS OF HEAD PAIN. PATIENT GIVEN DILAUDID 1 MG IVP. PATIENT V/S ARE STABLE. WILL CONTINUE TO MONITOR.
[2020-09-25 06:20] LABS: BASOPHILS % (AUTO) 0.4 % (0.0-2.0); EOSINOPHILS % (AUTO) 1.7 % (0.0-6.0); HEMATOCRIT 37 % (33-45); HEMOGLOBIN 12.3 g/dL (11.5-14.8); LYMPHOCYTES # (AUTO) 1.3 /CMM (0.8-4.8); LYMPHOCYTES % (AUTO) 13.5 % (20.0-44.0); MEAN CORPUSCULAR HGB CONC 34 g/dl (31.0-36.0); MEAN CORPUSCULAR VOLUME 84 fL (82-100); MONOCYTES # (AUTO) 0.7 /CMM (0.1-1.30); MONOCYTES % (AUTO) 7.5 % (2.0-12.0); NEUTROPHILS # (AUTO) 7.5 /CMM (1.8-8.9); NEUTROPHILS % (AUTO) 76.9 % (43.0-81.0); PLATELET COUNT (AUTO) 326 /CMM (150-450); RED BLOOD CELL COUNT(AUTO) 4.33 MIL/uL (4.0-5.2); WHITE BLOOD COUNT (AUTO) 9.8 K/uL (4.3-11.0)
--- NOTE | 2020-09-25 06:35 | NUR ---
MS/RN CLOSING NOTES PATIENT IN BED SLEEPING EASY TO AROUSE . PATIENT IS ALERT AND ORIENTED X 4. PATIENT BREATHING IS EVEN AND UNLABORED. NO SIGNS OF SOB OR RESPIRATORY DISTRESS NOTED. PATIENT IV ACCESS INTACT FLUSHING WELL R AC 18G RUNNING NS AT 75 CC/HR. ALL NEEDS HAVE BEEN MET DURING SHIFT. SAFETY MEASURES ARE IN PLACE, BED IS LOCKED AND PLACED IN THE LOWEST POSITION, CALL LIGHT IS WITHIN REACH, WILL ENDORSE CARET TO DAY SHIFT NURSE.
[2020-09-25 08:02] LABS: THYROID STIMULATING HORMONE 2.055 uIU/mL (0.358-3.74)
--- NOTE | 2020-09-25 08:10 | NUR ---
RN Note: Pt received alert awake oriented X 3. On RA, no breathing distress noted. Denies pain & discomfort. Ambulatory, Independent with ADLS. IV site intact, running with IV fluids as ordered. Safety measures observed. Encourage to use call light for assistance. Continue to monitor.
[2020-09-25] MEDS: METFORMIN 500 MG TABLET PO SCH ×2 (08:14→17:27)
[2020-09-25 08:43] LABS: ALBUMIN 3.2 g/dL (3.4-5.0); BILIRUBIN,TOTAL 0.6 mg/dL (0.2-1.0); CALCIUM, SERUM 8.3 mg/dL (8.5-10.1); CREATININE 0.8 mg/dL (0.6-1.3); MAGNESIUM 1.5 mg/dL (1.8-2.4); PHOSPHORUS 4.3 mg/dL (2.5-4.9); POTASSIUM 3.6 mmol/L (3.5-5.1); TOTAL PROTEIN, SERUM 7.7 g/dL (6.4-8.2)
[2020-09-25] MEDS: Magnesium 1GM/D5W 100ML PREMIX 100 ML IV SCH ×2 (11:12→12:28)
[2020-09-26] VITALS: BP 118/85
[2020-09-26] MEDS: IV NS 0.9% 1,000 ML IV PRN (01:35)
[2020-09-26 04:00] VITALS: BP 142/92
[2020-09-26 06:36] LABS: CREATININE 0.6 mg/dL (0.6-1.3); MAGNESIUM 2.3 mg/dL (1.8-2.4); POTASSIUM 3.6 mmol/L (3.5-5.1)
--- NOTE | 2020-09-26 07:25 | NUR ---
RN Note Pt received alert awake oriented X 3. On RA, no breathing distress noted at this time. Denies pain & discomfort. IV access on RAC #20 running with NS @75ml/hr. Safety measures maintained. call light within easy reach. will Continue to monitor.
[2020-09-26 08:00] VITALS: BP 154/92
[2020-09-26] MEDS: METFORMIN 500 MG TABLET PO SCH (08:05)
[2020-09-26] MEDS ORDERED: AMLODIPINE BESYLATE 5 MG TABLET PO SCH (09:00)
[2020-09-26 13:00] VITALS: BP 140/92
[2020-09-26] MEDS ORDERED: AMLO-212 PO (13:15)
--- NOTE | 2020-09-26 15:08 | NUR ---
MESSENGER FLOORPERSON NOTES PATIENT DISCHARGE IN STABLE CONDITION, VSS, IV ACCESS REMOVED AND APPLY PRESSURE DRESSING. SKIN IS INTACT, ARM BAND REMOVED, HEALTH TEACHINGS/DISCHARGE INSTRUCTION GIVEN TO PATIENT AND VERBALIZED UNDERSTANDING, ALL BELONGINGS WITH PATIENT, CHECKED AND SIGNED. PICKED UP BY FAMILY MEMBER, ACCOMPANIED TO LOBBY VIA WHEELCHAIR, CHARGE NURSE AWARE OF DISCHARGED.
== END 2020-09-26 15:20 | disposition home or self-care (01) | DRG 199 ==
LOC: ER 19:35 → TELE1 23:23 → MEDSG1 09-26 08:22
PROVIDERS: ADMIT Nurse Practitioner Acute Care; ATTEND Internal Medicine
DX: I16.0 Hypertensive urgency (principal); E11.65 Type 2 diabetes mellitus with hyperglycemia; Z20.822 Contact with and (suspected) exposure to COVID-19; I10 Essential (primary) hypertension; G89.29 Other chronic pain; Z79.84 Long term (current) use of oral hypoglycemic drugs; M19.90 Unspecified osteoarthritis, unspecified site; D72.829 Elevated white blood cell count, unspecified; E66.9 Obesity, unspecified; Z68.31 Body mass index [BMI] 31.0-31.9, adult
CPT/HCPCS: 36415; 70450-TC; 70496-TC; 80048-TC; 80053-TC; 80061-TC; 81001; 83735-TC; 84100-TC; 84443-TC; 84484-TC; 84703-TC; 85025-TC; 87081-TC; C9803; G0378; J0360; J1170; J1200; J1885; J2765; J3475; J7030; J7050; Q9967

== ENCOUNTER 2021-01-10 14:29 | Emergency (ER) | payer MEDICAID ==
[~2021-01-10] VITALS: Ht 165.1 cm; Wt 75.3 kg
[~2021-01-10 14:29] MED LIST changes: +AMLO-212 PO
--- NOTE | 2021-01-10 14:29 | NUR ---
PT BIB DAUGHTER C/O HEADACHE STARTED YESTEDAY MORNING. PT IS AAOX4, NOT IN RESPIRATORY DISTRESS, HOOKED TO FIREFIGHTING EQUIPMENT SPECIALIST, KEPT RESTED AND COMFORTABLE. WILL CONTINUE TO MONITOR.
--- NOTE | 2021-01-10 15:06 | NUR ---
AT BEDSIDE FOR EVAL.
[2021-01-10] MEDS ORDERED: ONDANSETRON HCL/PF 4 MG/2 ML VIAL ONE (15:15)
[2021-01-10] MEDS ORDERED: MORPHINE SULFATE INJ 2 MG/ML DISP.SYRIN ONE (15:15)
--- NOTE | 2021-01-10 15:18 | NUR ---
IV LINE ESTABLISHED BLOOD DRAWN AND SENT TO LAB.
[2021-01-10 15:30] LABS: BASOPHILS % (AUTO) 0.3 % (0.0-2.0); EOSINOPHILS % (AUTO) 1.5 % (0.0-6.0); HEMATOCRIT 32 % (33-45); HEMOGLOBIN 10.6 g/dL (11.5-14.8); LYMPHOCYTES # (AUTO) 1.5 K/uL (0.8-4.8); LYMPHOCYTES % (AUTO) 16.5 % (20.0-44.0); MEAN CORPUSCULAR HGB CONC 33 g/dl (31.0-36.0); MEAN CORPUSCULAR VOLUME 75 fL (82-100); MONOCYTES # (AUTO) 0.7 K/uL (0.1-1.30); MONOCYTES % (AUTO) 8.3 % (2.0-12.0); NEUTROPHILS # (AUTO) 6.5 K/uL (1.8-8.9); NEUTROPHILS % (AUTO) 73.4 % (43.0-81.0); PLATELET COUNT (AUTO) 334 K/uL (150-450); RED BLOOD CELL COUNT(AUTO) 4.33 MIL/uL (4.0-5.2); WHITE BLOOD COUNT (AUTO) 8.9 K/uL (4.3-11.0)
[2021-01-10] MEDS ORDERED: MORPHINE SULFATE INJ 2 MG/ML DISP.SYRIN IV ONE (15:30)
[2021-01-10] MEDS ORDERED: ONDANSETRON HCL/PF - ER 4 MG/2 ML VIAL IV ONE (15:30)
[2021-01-10 15:55] LABS: CALCIUM, SERUM 8.7 mg/dL (8.5-10.1); CREATININE 0.8 mg/dL (0.6-1.3)
[2021-01-10] MEDS ORDERED: METOCLOPRAMIDE HCL 10 MG/2 ML VIAL IV ONE (16:30)
[2021-01-10] MEDS ORDERED: KETOROLAC TROMETHAMINE INJ 30 MG/ML VIAL IV ONE (16:30)
[2021-01-10] MEDS ORDERED: METOCLOPRAMIDE HCL 10 MG/2 ML VIAL ONE (16:37)
[2021-01-10] MEDS ORDERED: KETOROLAC TROMETHAMINE 15 MG/ML VIAL ONE (16:37)
[2021-01-10] MEDS ORDERED: IBUP-1955 PO (18:08)
--- NOTE | 2021-01-10 18:18 | NUR ---
IV removed. Catheter intact and site benign. Pressure and 4x4 applied to site. No bleeding noted. Patient discharged to home in stable condition. Written and verbal after care instructions given. Patient verbalizes understanding of instruction.
[2021-01-10 18:19] VITALS: BP 137/84
== END 2021-01-10 18:19 | disposition home or self-care (01) ==
LOC: ER 14:31
DX: G44.009 Cluster headache syndrome, unspecified, not intractable (principal); I10 Essential (primary) hypertension; G89.29 Other chronic pain; E11.9 Type 2 diabetes mellitus without complications; M19.90 Unspecified osteoarthritis, unspecified site; Z98.890 Other specified postprocedural states; Z88.6 Allergy status to analgesic agent; Z79.899 Other long term (current) drug therapy
CPT/HCPCS: 36415; 80048; 84702; 85025; 96374; 96375; 99284; J1885; J2270; J2405 ×2; J2765

== ENCOUNTER 2021-06-25 21:07 | Emergency (ER) | payer MEDICAID ==
[~2021-06-25] VITALS: Ht 165.1 cm; Wt 78.5 kg
[~2021-06-25 21:07] MED LIST changes: +IBUP-1955 PO
--- NOTE | 2021-06-25 22:08 | NUR ---
BIBDAUGHTER. TO ER BED 10. AAOX4. NOT IN RESP DISTRESS. AMBULATORY. CAME IN FOR A POSTERIOR HEADACHE THAT STARTED THIS MORNING. PT IS ALSO COMPLAINING NAUSEA AND VOMMITING. PAIN IS 9/10 PRESSURE. TOOK TYLENOL X 1 HR, NOT EFFECTIVE. NO NEURO DEFICIT. AWAITING MD FOR EVAL.
[2021-06-25] MEDS ORDERED: METOCLOPRAMIDE HCL 10 MG/2 ML VIAL IV ONE (22:30)
[2021-06-25] MEDS ORDERED: IV NS 0.9% 500 ML BAG IV ONE (22:30)
[2021-06-25] MEDS ORDERED: KETOROLAC TROMETHAMINE INJ 30 MG/ML VIAL IV ONE (22:30)
[2021-06-25] MEDS ORDERED: KETOROLAC TROMETHAMINE INJ 30 MG/ML VIAL ONE (22:36)
[2021-06-25] MEDS ORDERED: METOCLOPRAMIDE HCL 10 MG/2 ML VIAL ONE (22:36)
[2021-06-25 23:31] LABS: BASOPHILS # (AUTO) 0.1 K/uL (0.0-0.2); BASOPHILS % (AUTO) 0.7 % (0.0-2.0); EOSINOPHILS % (AUTO) 1.1 % (0.0-6.0); HEMATOCRIT 36 % (33-45); HEMOGLOBIN 11.9 g/dL (11.5-14.8); LYMPHOCYTES # (AUTO) 2.2 K/uL (0.8-4.8); LYMPHOCYTES % (AUTO) 17.6 % (20.0-44.0); MEAN CORPUSCULAR HGB CONC 33 g/dl (31.0-36.0); MEAN CORPUSCULAR VOLUME 80 fL (82-100); MONOCYTES # (AUTO) 1.4 K/uL (0.1-1.30); NEUTROPHILS # (AUTO) 8.6 K/uL (1.8-8.9); NEUTROPHILS % (AUTO) 69.6 % (43.0-81.0); PLATELET COUNT (AUTO) 337 K/uL (150-450); WHITE BLOOD COUNT (AUTO) 12.4 K/uL (4.3-11.0)
[2021-06-25 23:40] LABS: CALCIUM, SERUM 8.7 mg/dL (8.5-10.1); CREATININE 0.7 mg/dL (0.6-1.3); POTASSIUM 3.1 mmol/L (3.5-5.1)
[2021-06-26] MEDS ORDERED: POTASSIUM CHLORIDE 20 MEQ TAB.PRT.SR PO ONE ×2 (00:30→00:39)
--- NOTE | 2021-06-26 00:48 | NUR ---
Patient discharged to home in stable condition. Written and verbal after care instructions given. Patient verbalizes understanding of instruction.IV removed. Catheter intact and site benign. Pressure and 4x4 applied to site. No bleeding noted. Pt ambulatory with a steady gait
[2021-06-26 01:41] VITALS: BP 136/93
[2021-06-26] MEDS ORDERED: SUMA100T16 PO (09:17)
[2021-06-26] MEDS ORDERED: PSEU120T83 PO (09:17)
== END 2021-06-26 00:51 | disposition home or self-care (01) ==
LOC: ER 21:10
DX: G44.009 Cluster headache syndrome, unspecified, not intractable (principal); I10 Essential (primary) hypertension; E11.9 Type 2 diabetes mellitus without complications; G89.29 Other chronic pain; M19.90 Unspecified osteoarthritis, unspecified site; Z88.6 Allergy status to analgesic agent; Z79.899 Other long term (current) drug therapy; Z79.84 Long term (current) use of oral hypoglycemic drugs
CPT/HCPCS: 36415; 80048; 85025; 96361; 96374; 96375; 99284; J1885; J2765; J7040

== ENCOUNTER 2021-06-26 07:18 | Emergency (ER) | payer MEDICAID ==
[~2021-06-26] VITALS: Ht 165.1 cm; Wt 78.5 kg
--- NOTE | 2021-06-26 07:26 | NUR ---
TO ER BED 4, BIB FAMILY C/O HEADACHE. SEEN HERE 7HRS AGO FOR SAME COMPLAINS, DENIES SOB, AAOX3, BREATHING EVEN AND NON LABORED, CONNECTED TO MONITOR, AWAITING MD GIPSON
[2021-06-26] MEDS ORDERED: PROCHLORPERAZINE EDISYLATE 10 MG/2 ML VIAL IM ONE (08:00)
[2021-06-26] MEDS ORDERED: ACETAMINOPHEN ES 500 MG TABLET PO ONE (08:00)
[2021-06-26] MEDS ORDERED: SUMATRIPTAN SUCCINATE 6 MG/0.5 ML VIAL SQ ONE ×2 (08:00→08:09)
[2021-06-26] MEDS ORDERED: PROCHLORPERAZINE EDISYLATE 10 MG/2 ML VIAL ONE (08:09)
[2021-06-26] MEDS ORDERED: ACETAMINOPHEN ES 500 MG TABLET ONE (08:10)
--- NOTE | 2021-06-26 08:28 | NUR ---
TAKEN TO CT
[2021-06-26] MEDS ORDERED: SUMA100T16 PO (09:17)
[2021-06-26] MEDS ORDERED: PSEU120T83 PO (09:17)
--- NOTE | 2021-06-26 09:41 | NUR ---
Patient discharged to home in stable condition. Written and verbal after care instructions given. Patient verbalizes understanding of instruction.
[2021-06-26 09:42] VITALS: BP 138/92
== END 2021-06-26 09:43 | disposition home or self-care (01) ==
LOC: ER 07:20
DX: R51.9 Headache, unspecified (principal); I10 Essential (primary) hypertension; E11.9 Type 2 diabetes mellitus without complications; G89.29 Other chronic pain; M19.90 Unspecified osteoarthritis, unspecified site; Z88.6 Allergy status to analgesic agent; Z79.899 Other long term (current) drug therapy; Z79.84 Long term (current) use of oral hypoglycemic drugs
CPT/HCPCS: 70450; 96372 ×2; 99284; J0780; J3030

== ENCOUNTER 2022-09-25 05:34 | Emergency (ER) | payer MEDICAID ==
[~2022-09-25] VITALS: Ht 160 cm; Wt 67.6 kg
[~2022-09-25 05:34] MED LIST changes: +PSEU120T83 PO; +SUMA100T16 PO
--- NOTE | 2022-09-25 05:58 | NUR ---
C/O HEADACHE AND CHESTPAIN SINCE 399. RN PEDIATRIC ICU TOOK AMPLODIPINE PRESCRIBED. PT A/OX4. TOLERATING R/A WELL WITH NO RESP DISTRESS. AMB WITH STEADY GAIT. CONNECTED PT TO POX AND MONITOR.
--- NOTE | 2022-09-25 06:05 | NUR ---
EMT AT PT'S BEDSIDE FOR EKG
--- NOTE | 2022-09-25 06:12 | NUR ---
DR PARISH LOVE AT PT'S BEDSIDE FOR EVAL
--- NOTE | 2022-09-25 06:29 | NUR ---
PT SIGNED WAIVER FORM; CODING TECHNICIAN AWARE
--- NOTE | 2022-09-25 06:29 | NUR ---
IV RAC #18G S/L BLOOD COLLECTED AND SENT TO LAB
[2022-09-25] MEDS ORDERED: ACETAMINOPHEN ES 500 MG TABLET ONE (06:47)
[2022-09-25] MEDS ORDERED: LORAZEPAM 1 MG TABLET ONE (06:47)
--- NOTE | 2022-09-25 06:47 | NUR ---
PT TAKEN TO CT VIA [facility]
[2022-09-25] MEDS ORDERED: LORAZEPAM 1 MG TABLET PO ONE (07:00)
[2022-09-25] MEDS ORDERED: ACETAMINOPHEN ES 500 MG TABLET PO ONE (07:00)
[2022-09-25 07:03] LABS: CALCIUM, SERUM 8.8 mg/dL (8.5-10.1); CARBON DIOXIDE 25 mmol/L (21-32); CHLORIDE 100 mmol/L (98-107); CREATININE 0.5 mg/dL (0.6-1.3); GLUCOSE 290 mg/dL (74-106); POTASSIUM 3.4 mmol/L (3.5-5.1); SODIUM SERUM 130 mmol/L (136-145); UREA NITROGEN, BLOOD 14 mg/dL (7-18)
[2022-09-25 07:22] LABS: BASOPHILS % (AUTO) 0.5 % (0.0-2.0); EOSINOPHILS % (AUTO) 0.7 % (0.0-6.0); HEMATOCRIT 39 % (33-45); HEMOGLOBIN 13.1 g/dL (11.5-14.8); LYMPHOCYTES # (AUTO) 1.6 K/uL (0.8-4.8); LYMPHOCYTES % (AUTO) 16.3 % (20.0-44.0); MEAN CORPUSCULAR HGB CONC 34 g/dl (31.0-36.0); MEAN CORPUSCULAR VOLUME 83 fL (82-100); MONOCYTES # (AUTO) 0.6 K/uL (0.1-1.30); MONOCYTES % (AUTO) 6.3 % (2.0-12.0); NEUTROPHILS # (AUTO) 7.4 K/uL (1.8-8.9); NEUTROPHILS % (AUTO) 76.2 % (43.0-81.0); PLATELET COUNT (AUTO) 305 K/uL (150-450); RED BLOOD CELL COUNT(AUTO) 4.71 MIL/uL (4.0-5.2); WHITE BLOOD COUNT (AUTO) 9.7 K/uL (4.3-11.0)
--- NOTE | 2022-09-25 07:54 | NUR ---
PT RETURNED FROM CT VIA [facility]
[2022-09-25] MEDS ORDERED: BUTA1CAP46 PO (09:17)
[2022-09-25 09:53] VITALS: BP 152/98
== END 2022-09-25 09:55 | disposition home or self-care (01) ==
LOC: ER 05:36
DX: R51.9 Headache, unspecified (principal); I10 Essential (primary) hypertension; E11.9 Type 2 diabetes mellitus without complications; G89.29 Other chronic pain; M19.90 Unspecified osteoarthritis, unspecified site; Z88.8 Allergy status to other drugs, medicaments and biological substances; Z79.899 Other long term (current) drug therapy
CPT/HCPCS: 36415; 70450-TC; 71045-TC; 71250-TC; 80048-TC; 84484-TC; 85025-TC

== ENCOUNTER 2023-12-06 20:17 | Emergency (ER) | payer MEDICAID, OTHER ==
[~2023-12-06] VITALS: Ht 162.6 cm; Wt 65.8 kg
[~2023-12-06 20:17] MED LIST changes: +BUTA1CAP46 PO
[2023-12-06 20:42] VITALS: BP 146/83; TEMP 98.7; O2SAT 98
[2023-12-06] MEDS ORDERED: GUAI120013 PO (21:00)
[2023-12-06] MEDS ORDERED: FLUT16SP16 BNOSTRILS (21:00)
== END 2023-12-06 21:32 | disposition home or self-care (01) ==
LOC: ER 20:39
DX: H92.01 Otalgia, right ear (principal); I10 Essential (primary) hypertension; E11.9 Type 2 diabetes mellitus without complications; M19.90 Unspecified osteoarthritis, unspecified site; Z88.5 Allergy status to narcotic agent; Z91.040 Latex allergy status

== ENCOUNTER 2024-05-04 09:51 | Emergency (ER) | payer OTHER ==
[~2024-05-04] VITALS: Ht 162.6 cm; Wt 72.6 kg
[~2024-05-04 09:51] MED LIST changes: +FLUT16SP16 BNOSTRILS; +GUAI120013 PO
[2024-05-04 10:13] VITALS: BP 136/81; TEMP 98.8
[2024-05-04] MEDS ORDERED: FLUORESCEIN SODIUM OPHTH 1 EA STRIP ONE ×2 (10:41→11:17)
[2024-05-04] MEDS ORDERED: TETRAcaine 5 ML BOTTLE ONE ×2 (10:41→11:19)
[2024-05-04] MEDS ORDERED: TONO PEN in ED SUPPLY ONICELL 1 EA MC ONE (11:00)
[2024-05-04] MEDS ORDERED: HYDROCODONE/APAP 5/325MG TABLET ONE (11:36)
[2024-05-04] MEDS: HYDROCODONE/APAP 5/325MG TABLET PO ONE (11:37)
[2024-05-04] MEDS: FLUORESCEIN SODIUM OPHTH 1 EA STRIP OP ONE (11:44)
[2024-05-04] MEDS: TETRACAINE HCL 0.5% OPHTALMIC 15 ML BOTTLE OP ONE (11:44)
[2024-05-04 11:45] VITALS: O2SAT 99
== END 2024-05-04 11:46 | disposition left against medical advice (07) ==
LOC: ER 09:51
DX: H57.12 Ocular pain, left eye (principal); R11.2 Nausea with vomiting, unspecified; R51.9 Headache, unspecified; E11.9 Type 2 diabetes mellitus without complications; G89.29 Other chronic pain; I10 Essential (primary) hypertension; M19.90 Unspecified osteoarthritis, unspecified site; Z79.84 Long term (current) use of oral hypoglycemic drugs; Z88.5 Allergy status to narcotic agent; Z91.041 Radiographic dye allergy status

== ENCOUNTER 2025-04-04 11:59 | Emergency (ER) | payer OTHER ==
[~2025-04-04] VITALS: Ht 162.6 cm; Wt 72.6 kg
[2025-04-04] MEDS ORDERED: ACETAMINOPHEN ES 500 MG TABLET ONE (12:28)
[2025-04-04] MEDS: ACETAMINOPHEN ES 500 MG TABLET PO ONE (12:40)
[2025-04-04 13:29] VITALS: BP 142/88; TEMP 98.1; O2SAT 99
== END 2025-04-04 13:29 | disposition home or self-care (01) ==
LOC: ER 12:06
DX: S63.501A Unspecified sprain of right wrist, initial encounter (principal); G89.29 Other chronic pain; M25.512 Pain in left shoulder; I10 Essential (primary) hypertension; E11.9 Type 2 diabetes mellitus without complications; M19.90 Unspecified osteoarthritis, unspecified site; Z91.041 Radiographic dye allergy status; Z88.5 Allergy status to narcotic agent; Z79.84 Long term (current) use of oral hypoglycemic drugs; Y09 Assault by unspecified means; Y93.89 Activity, other specified; Y92.89 Other specified places as the place of occurrence of the external cause; Y99.8 Other external cause status
CPT/HCPCS: 73090-TC; 73110